=== PATIENT | male | born 2000 | race Caucasian/White ===

== ENCOUNTER 2021-07-23 18:53 | Emergency (ER) | payer OTHER ==
[2021-07-23 19:32] LABS: BASOPHILS % (AUTO) 0.3 %; HCT - HEMATOCRIT 47.5 % (42.0-52.0); HGB - HEMOGLOBIN 16.4 g/dL (14.0-18.0); LYMPHOCYTES # (AUTO) 0.9 10^3/uL (1.5-3.5); MEAN CORPUSCULAR HEMOGLOBIN 28.7 pg (27.0-31.0); MEAN CORPUSCULAR HGB CONC 34.5 g/dL (32.0-36.0); MEAN PLATELET VOLUME 9.4 fL (7.4-11.4); MONOCYTES # (AUTO) 0.7 10^3/uL (0.0-1.0); MONOCYTES % (AUTO) 9.4 %; NEUTROPHILS # (AUTO) 5.3 10^3/uL (1.5-6.6); NEUTROPHILS % (AUTO) 76.9 %; PLT - PLATELET COUNT 155 10^3/uL (130-450); RED BLOOD COUNT 5.72 10^6/uL (4.70-6.10); WHITE BLOOD COUNT 6.9 x10^3/uL (4.8-10.8)
[2021-07-23] MEDS ORDERED: ACETAMINOPHEN 1,000 MG/100 ML 100 ML IV ONE (19:32)
[2021-07-23] MEDS ORDERED: SODIUM CHLORIDE 0.9% 1,000 ML IV STA (19:39)
[2021-07-23 19:45] LABS: ALBUMIN 4.8 g/dL (3.2-5.5); ALBUMIN/GLOBULIN RATIO 1.4 (1.0-2.2); BILIRUBIN,TOTAL 0.8 mg/dL (0.2-1.0); CALCIUM 9.4 mg/dL (8.5-10.3); CREATININE 0.9 mg/dL (0.6-1.2); POTASSIUM 3.6 mmol/L (3.5-5.0); TOTAL PROTEIN 8.3 g/dL (6.7-8.2)
--- NOTE | 2021-07-23 19:47 | ED Physician Documentation ---
History of Present Illness - Stated complaint Stated Complaint: LRQ PX/FEVER - Chief complaint Chief Complaint: Abd Pain - Additonal information Additional information: 21-year-old male presents the emergency department for evaluation of cute onset right lower quadrant right flank pain. This is preceded by 3 days of fevers, myalgias and chills. He has not yet vaccinated for COVID-19. He did receive a COVID-19 screening test this afternoon at [facility] but does not yet know the results. Shortly after returning home he began having right lower quadrant abdominal pain. He denies any vomiting or diarrhea. No dysuria. He does re port a history of previous appendectomy. Denies any pertinent past medical problems. Is a non-smoker. Takes no medicines prescribed by physician. Nursing staff reports to me that he did have a near syncopal event after his blood was drawn. He got very lightheaded and diaphoretic. This likely represents a vasovagal reaction. Review of Systems Constitutional: reports: Fever, Chills, Myalgias Eyes: reports: Reviewed and negative Ears: reports: Reviewed and negative Nose: reports: Reviewed and negative, Other (Denies loss of taste and smell) Throat: reports: Reviewed and negative Cardiac: reports: Reviewed and negative Respiratory: reports: Cough (Dry cough began today). denies: Dyspnea GI: reports: Reviewed and negative : denies: Dysuria, Frequency, Hesitancy Skin: reports: Reviewed and negative Musculoskeletal: reports: Reviewed and negative Neurologic: reports: Reviewed and negative PD PAST MEDICAL HISTORY - Past Surgical History Past Surgical History: Yes General: Appendectomy HEENT: Tonsil/Adenoidectomy - Present Medications Home Medications: Ambulatory Orders Medication Instructions Recorded Confirmed No Known Home Medications 07/23/21 07/23/21 - Allergies Allergies/Adverse Reactions: Allergies Allergy/AdvReac Type Severity Reaction Status Date / Time No Known Drug Allergies Allergy Verified 07/23/21 19:04 - Social History Does the pt smoke?: No Smoking Status: Never smoker PD ED PE EXPANDED - General General: Alert, No acute distress, Well developed/nourished - Neck Neck: Supple w/out meningeal sx. No: Adenopathy - Cardiac Cardiac: Tachy, Radial strong equal, Cap refill < 2 sec - Respiratory Respiratory: Clear to ausultation [place]. No: Distress, Labored - Abdomen Abdomen: Normal Bowel sounds. No: Tender to palpation - Back Back: Normal exam - Derm Derm: Normal color, Warm and dry. No: Rash - Extremities Extremities: Normal. No: Deformity, Tenderness - Neuro Neuro: Alert and Oriented X 3, CNII-XII intact - GCS Eye Opening: Spontaneous Motor: Obeys Commands Verbal: Oriented () Total: 15 Results - Vitals Vitals: Vital Signs - 24 hr 07/23/21 07/23/21 19:05 21:10 Temperature 38.7 C H Heart Rate 110 H 92 Respiratory 18 18 Rate Blood Pressure 138/77 H 131/76 H O2 Saturation 97 96 Oxygen O2 Source Room air - Labs Labs: Laboratory Tests 07/23/21 07/23/21 07/23/21 19:27 19:27 19:49 WBC 6.9 RBC 5.72 Hgb 16.4 Hct 47.5 MCV 83.0 MCH 28.7 MCHC 34.5 RDW 12.0 Plt Count 155 MPV 9.4 Neut # (Auto) 5.3 Lymph # (Auto) 0.9 L [place] # (Auto) 0.7 Eos # (Auto) 0.0 Baso # (Auto) 0.0 Absolute Nucleated RBC 0.00 Nucleated RBC % 0.0 Sodium 137 Potassium 3.6 Chloride 99 L Carbon Dioxide 26 Anion Gap 12.0 BUN 12 Creatinine 0.9 Estimated GFR (MDRD) 107 Glucose 103 H Lactic Acid Calcium 9.4 Total Bilirubin 0.8 AST 25 ALT 34 Alkaline Phosphatase 60 Total Protein 8.3 H Albumin 4.8 Globulin 3.5 Albumin/Globulin Ratio 1.4 Lipase 24 Urine Color YELLOW Urine Clarity CLEAR Urine pH 6.0 Ur Specific [place] 1.025 Urine Protein NEGATIVE Urine Glucose (UA) NEGATIVE Urine Ketones 40 H Urine Occult Blood NEGATIVE Urine Nitrite NEGATIVE Urine Bilirubin NEGATIVE Urine Urobilinogen 2 H Ur Leukocyte Esterase NEGATIVE Ur Microscopic Review NOT INDICATED Urine Culture Comments NOT INDICATED Nasal Adenovirus (PCR) Nasal B. parapertussis DNA (PCR) Nasal Coronavir 229E PCR Nasal Coronavir HKU1 PCR Nasal Coronavir NL63 PCR Nasal Coronavir OC43 PCR Nasal Enterovir/Rhinovir PCR Nasal Influenza B PCR Nasal Influenza A PCR Nasal Parainfluen 1 PCR Nasal Parainfluen 2 PCR Nasal Parainfluen 3 PCR Nasal Parainfluen 4 PCR Nasal RSV (PCR) Nasal B.pertussis DNA PCR Nasal C.pneumoniae (PCR) [place] Human Metapneumo PCR Nasal M.pneumoniae (PCR) Nasal SARS-CoV-2 (PCR) 07/23/21 07/23/21 19:50 19:58 WBC RBC Hgb Hct MCV MCH MCHC RDW Plt Count MPV Neut # (Auto) Lymph # (Auto) [place] # (Auto) Eos # (Auto) Baso # (Auto) Absolute Nucleated RBC Nucleated RBC % Sodium Potassium Chloride Carbon Dioxide Anion Gap BUN Creatinine Estimated GFR (MDRD) Glucose Lactic Acid 1.1 Calcium Total Bilirubin AST ALT Alkaline Phosphatase Total Protein Albumin Globulin Albumin/Globulin Ratio Lipase Urine Color Urine Clarity Urine pH Ur Specific [place] Urine Protein Urine Glucose (UA) Urine Ketones Urine Occult Blood Urine Nitrite Urine Bilirubin Urine Urobilinogen Ur Leukocyte Esterase Ur Microscopic Review Urine Culture Comments Nasal Adenovirus (PCR) NOT DETECTED Nasal B. parapertussis DNA (PCR) NOT DETECTED Nasal Coronavir 229E PCR NOT DETECTED Nasal Coronavir HKU1 PCR NOT DETECTED Nasal Coronavir NL63 PCR NOT DETECTED Nasal Coronavir OC43 PCR NOT DETECTED Nasal Enterovir/Rhinovir PCR NOT DETECTED Nasal Influenza B PCR NOT DETECTED Nasal Influenza A PCR NOT DETECTED Nasal Parainfluen 1 PCR NOT DETECTED Nasal Parainfluen 2 PCR NOT DETECTED Nasal Parainfluen 3 PCR NOT DETECTED Nasal Parainfluen 4 PCR NOT DETECTED Nasal RSV (PCR) NOT DETECTED Nasal B.pertussis DNA PCR NOT DETECTED Nasal C.pneumoniae (PCR) NOT DETECTED [place] Human Metapneumo PCR NOT DETECTED Nasal M.pneumoniae (PCR) NOT DETECTED Nasal SARS-CoV-2 (PCR) DETECTED A - Rads (name of study) CXR Radiology: Final report received (No acute cardiopulmonary process) retroperitoneal US Radiology: Final report received (No hydronephrosis. Linear echogenic foci in both kidneys this could represent vascular calcifications or small nonobstructing kidney stones. Prostatomegaly) PD MEDICAL DECISION MAKING - ED course Complexity details: reviewed results, re-evaluated patient, considered differential, d/w patient ED course: 21-year-old male presents emergency department for evaluation of fever, myalgias and fatigue that began about 3 days ago. [facility] [place] [facility] this afternoon he developed sudden onset right lower quadrant abdominal pain. There was no testicular tenderness noted or elicited. He does have a history of previous appendectomy in his youth. Screening labs show no acute abnormalities. Urine is not consistent with infection or hematuria. Chest x-ray does not show focus of pneumonia. Respiratory PCR was positive for COVID-19. Given that later in the day we cannot provide MAbB therapy but patient is a candidate and was advised to return to the emergency department tomorrow if you would like this therapy. The right lower quadrant abdominal pain was further all evaluated with a retroperitoneal ultrasound. Though there was no findings of infection in the urine or hematuria we wanted to ensure that there was no secondary findings such as hydronephrosis and reassuringly none was found. Given previous history of appendectomy it is not likely that there is a more worrisome intra-abdominal concern at this time. He had a nonperitoneal exam. Other differentials at this time can include mesenteric adenitis, Meckel's diverticulum, low suspicion for acute Brandy given lack of right upper quadrant pain or LFT abnormalities. Patient was given appropriate return precautions. Recommend fluids and rest at home. Was also advised to quarantine with his roommate for at least the next 10 days from onset of symptoms. Departure - Departure Disposition: 01 Home, Self Care Clinical Impression: COVID-19, RLQ abdominal pain Condition: Stable Record reviewed to determine appropriate education?: Yes Comments: Nigel you are seen in the emergency department today for fever body aches and right lower quadrant abdominal pain. Your COVID-19 test is positive. You need to remain in quarantine for at least 10 days from the onset of symptoms. IT is important that you stay well hydrated. If you find that you develop severe shortness of breath, become dusky or discolored or have severe chest pain, then please return to the ED You are a candidate for monoclonal antibody infusion. If you would like to receive this therapy you need to return to the emergency department tomorrow before approximately 5 or 6 PM. You do have a history of previous appendectomy. Your screening labs today are otherwise unremarkable. We did do an ultrasound to look in your kidneys but there was no findings of swelling or obvious stones. If you find that your lower abdominal pain is not improving, you have uncontrolled vomiting any black or bloody stools then please return immediately to the ER for a second evaluation. Discharge Date/Time: 07/23/21 22:10
[2021-07-23 20:03] LABS: BILIRUBIN,URINE NEGATIVE (NEGATIVE); GLUCOSE, URINE (UA) NEGATIVE (NEGATIVE); KETONES,URINE (UA) 40 mg/dL (NEGATIVE); LEUKOCYTE ESTERASE, URINE NEGATIVE (NEGATIVE); NITRITE,URINE NEGATIVE (NEGATIVE); OCCULT BLOOD,URINE NEGATIVE (NEGATIVE); PROTEIN,URINE NEGATIVE (NEGATIVE); UROBILINOGEN,URINE 2 E.U./dL (NORMAL)
[2021-07-23 20:04] LABS: CLARITY,URINE CLEAR (CLEAR)
--- NOTE | 2021-07-23 20:41 | XRAY Report ---
PROCEDURE: Chest 1 View X-Ray INDICATIONS: chest pain TECHNIQUE: One view of the chest was acquired. COMPARISON: None. FINDINGS: Surgical changes and devices: None. Lungs and pleura: No pleural effusions or pneumothorax. Lungs are clear. Mediastinum: Mediastinal contours appear normal. Heart size is normal. Bones and chest wall: No suspicious bony lesions. Overlying soft tissues appear unremarkable. IMPRESSION: No acute cardiopulmonary abnormality. Reviewed by: Davidson Bone MD on 07/23/2021 8:40 PM PDT Approved by: Davidson Bone MD on 07/23/2021 8:40 PM PDT Station ID: [id number]
[2021-07-23 21:14] VITALS: BP 131/76
[2021-07-23 21:38] LABS: CORONAVIRUS 229E-RESP PCR NOT DETECTED; CORONAVIRUS HKU1-RESP PCR NOT DETECTED; CORONAVIRUS NL63-RESP PCR NOT DETECTED; CORONAVIRUS OC43-RESP PCR NOT DETECTED
[2021-07-23 21:40] LABS: HUMAN METAPNEUMOVIRUS NOT DETECTED; INFLUENZA A- RESP PCR PANEL NOT DETECTED; RHINOVIRUS/ENTEROVIRUS NOT DETECTED; SARS-CoV-2 -RESP PCR PANEL DETECTED
[2021-07-23 21:41] LABS: B. PARAPERTUSSIS- RESP PCR PAN NOT DETECTED; B. PERTUSSIS- RESP PCR PANEL NOT DETECTED; C. PNEUMONIAE- RESP PCR PANEL NOT DETECTED; INFLUENZA B - RESP PCR PANEL NOT DETECTED; M. PNEUMONIAE- RESP PCR PANEL NOT DETECTED; PARAINFLUENZA VIRUS 1 NOT DETECTED; PARAINFLUENZA VIRUS 2 NOT DETECTED; PARAINFLUENZA VIRUS 3 NOT DETECTED; PARAINFLUENZA VIRUS 4 NOT DETECTED; RSV- RESP PCR PANEL NOT DETECTED
--- NOTE | 2021-07-23 21:58 | Ultrasound Report ---
PROCEDURE: Retroperitoneal INDICATIONS: ? hydro right flank? TECHNIQUE: Real-time scanning was performed of the kidneys and bladder, with image documentation. COMPARISON: None. FINDINGS: Limited visualization. Kidneys: Kidneys are normal in size. Right kidney measures 12.6 cm long; left kidney measures 12.4 cm long. Right renal cortical thickness is 1.9 cm; left renal cortical thickness is 1.8 cm. No kev d masses or hydronephrosis. Linear echogenic foci in both kidneys. Simple appearing left renal cyst m easuring 1.2 cm. Bladder: Prevoid volume of 45 cc. Postvoid not obtained. Patient is unable to void. Bilateral ureter jets are seen. Prostate: 4 x 2.4 x 2 cm. IMPRESSION: 1. No hydronephrosis. 2. Linear echogenic foci in both kidneys. This could represent vascular calcifications or small nonob structing kidney stones. CT KUB could be considered for further evaluation. 3. Prostatomegaly. Reviewed by: Davidson Bone MD on 07/23/2021 9:56 PM PDT Approved by: Davidson Bone MD on 07/23/2021 9:56 PM PDT Station ID: [id number]
== END 2021-07-23 22:10 | disposition home or self-care (01) ==
LOC: ED 18:53
DX: U07.1 COVID-19 (principal)
CPT/HCPCS: 0202U; 36415; 71045; 76770; 80053; 81003; 83605; 83690; 85025; 87040; 96365; 99284; J0131; 81001; 87086